=== PATIENT | male | born 1955 | race Caucasian/White ===

== ENCOUNTER 2016-12-03 18:50 | Outpatient (CLI) | payer OTHER | END 2016-12-03 18:51 | disposition critical access hospital (66) | LOC: EMS 18:50 | PROVIDERS: ATTEND Surgery | DX: R56.9 Unspecified convulsions (principal) | CPT/HCPCS: A0425; A0429 ==

== ENCOUNTER 2016-12-03 19:05 | Emergency (ER) | payer OTHER ==
--- NOTE | 2016-12-03 19:12 | ED Physician Documentation ---
PD HPI SYNCOPE - Stated complaint Stated Complaint: SZ - History obtained from History obtained from: Patient, EMS - History of Present Illness Witnessed: Witnessed (Reportedly passed out after saying he didn't feel well at the dinner table, there was some shaking but no fall and no reported postictal episode. Had a similar episode last year and then after that was diagnosed with Parkinson's. The patient is a poor historian, seems to have some memory difficulties and doesn't remember the event.) Review of Systems Unable to obtain: Confused PD PAST MEDICAL HISTORY - Present Medications Home Medications: Ambulatory Orders Medication Instructions Recorded Confirmed Atenolol 25 mg PO DAILY 09/09/13 12/03/16 Lisinopril [Zestril] 20 mg PO DAILY 09/09/13 12/03/16 Atorvastatin [Lipitor] 20 mg PO DAILY 08/01/15 12/03/16 Esomeprazole [NexIUM] 40 mg PO DAILY 08/01/15 12/03/16 Carbidopa/Levodopa [Carbidopa-Levo 0 mg TID 12/03/16 12/03/16 ER 25-100 Tab] Ferrous Sulfate 324 mg DAILY 12/03/16 12/03/16 - Allergies Allergies/Adverse Reactions: Allergies Allergy/AdvReac Type Severity Reaction Status Date / Time codeine AdvReac Intermediate gi problems Verified 08/01/15 10:16 PD ED PE NORMAL - Vitals Vital signs reviewed: Yes - General General: No acute distress, Other (A/O x2) - HEENT HEENT: PERRL, EOMI - Neck Neck: Supple, no meningeal sign, No bony TTP - Cardiac Cardiac: RRR, No murmur - Respiratory Respiratory: No respiratory distress, Clear bilaterally - Abdomen Abdomen: Soft, Other (Focal RUQ TTP) - Back Back: No CVA TTP, No spinal TTP - Derm Derm: Normal color, Warm and dry - Extremities Extremities: No edema, No calf tenderness / cord - 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, No motor deficit, No sensory deficit - Psych Psych: Normal mood, Normal affect Results - Vitals Vitals: Vital Signs - 24 hr 12/03/16 12/03/16 12/03/16 19:06 19:35 20:22 Temperature 36 C L Heart Rate 82 86 81 Respiratory 18 18 18 Rate Blood Pressure 144/74 H 141/85 H 145/85 H O2 Saturation 100 100 99 06/11/17 21:45 Temperature Heart Rate 87 Respiratory 18 Rate Blood Pressure 134/71 H O2 Saturation 97 Oxygen O2 Source Room air - EKG (time done) 1917 Rate: Rate (enter#) (77) Rhythm: NSR [place]: Normal Intervals: Normal MA QRS: Normal Ischemia: Normal ST segments Computer interpretation: Agree with computer - Labs Labs: Laboratory Tests 12/03/16 12/03/16 12/03/16 19:20 19:20 19:20 WBC 6.1 RBC 4.34 L Hgb 12.4 L Hct 37.6 L MCV 86.4 MCH 28.6 MCHC 33.1 RDW 14.4 Plt Count 259 MPV 7.9 Neut # 3.4 Lymph # 2.1 [place] # 0.5 Eos # 0.1 Baso # 0.0 Absolute Nucleated RBC 0.00 Nucleated RBCs 0.1 Sodium 139 Potassium 3.8 Chloride 105 Carbon Dioxide 26 Anion Gap 8.0 BUN 21 H Creatinine 0.8 Estimated GFR (MDRD) 99 Glucose 178 H Calcium 9.1 Total Bilirubin 0.3 AST 19 ALT 28 Alkaline Phosphatase 62 Troponin I < 0.04 Total Protein 7.2 Albumin 4.5 Globulin 2.7 Albumin/Globulin Ratio 1.7 Lipase 24 Ethyl Alcohol < 5.0 - Rads (name of study) CT Head Radiology: EMP read contemporaneously (NAD) RUQ sono Radiology: EMP read contemporaneously (fatty liver, small R kidney) PD MEDICAL DECISION MAKING - ED course ED course: The arrived, her description of the episode was that he said he didn't feel well, and then started shaking, but was still conscious during that time he never completely lost consciousness, but his mental status was not and he is not normal. He is tender in the right upper quadrant and I wonder if this episode was the only way he could demonstrate pain. He says he is in no pain but does admit to significant pain when I palpate the right upper quadrant. Given that he never completely lost consciousness with bilateral shaking this is not consistent with syncope or seizure. He pretty much came back to normal here, his workup was negative. He ate and did well and ambulated at his baseline per the . She felt comfortable taking him home. Departure - Departure Disposition: 01 Home, Self Care Clinical Impression: Episode of shaking, Parkinson disease Condition: Good Record reviewed to determine appropriate education?: Yes Instructions: ED Confusion Comments: Call your doctor to arrange a follow up appointment. Make the next available appointment. In the interim return anytime if worse or if new symptoms develop. Your blood pressure was elevated today on check in to the emergency department. This does not mean that you have hypertension, it is a common phenomenon to check into the emergency department and have elevated blood pressure. I recommend that you see your primary care physician within the week to have it rechecked when you're feeling better. Discharge Date/Time: 12/03/16 22:03
[2016-12-03 19:31] LABS: BASOPHILS % (AUTO) 0.7 %; EOSINOPHILS # (AUTO) 0.1 10^3/uL (0.0-0.7); EOSINOPHILS % (AUTO) 2.2 %; HCT - HEMATOCRIT 37.6 % (42.0-52.0); HGB - HEMOGLOBIN 12.4 g/dL (14.0-18.0); LYMPHOCYTES # (AUTO) 2.1 10^3/uL (1.5-3.5); MEAN CORPUSCULAR HEMOGLOBIN 28.6 pg (27.0-31.0); MEAN CORPUSCULAR HGB CONC 33.1 g/dL (32.0-36.0); MEAN CORPUSCULAR VOLUME 86.4 fL (80.0-94.0); MEAN PLATELET VOLUME 7.9 fL (7.4-11.4); MONOCYTES # (AUTO) 0.5 10^3/uL (0.0-1.0); MONOCYTES % (AUTO) 7.9 %; NEUTROPHILS # (AUTO) 3.4 10^3/uL (1.5-6.6); NEUTROPHILS % (AUTO) 55.2 %; NUCLEATED RED BLOOD CELLS AUTO 0.1 /100WBC; RED BLOOD COUNT 4.34 10^6/uL (4.70-6.10); RED CELL DISTRIBUTION WIDTH 14.4 % (12.0-15.0); UNCORRECTED WHITE BLOOD COUNT 6.1 x10^3/uL; WHITE BLOOD COUNT 6.1 x10^3/uL (4.8-10.8)
[2016-12-03 19:41] LABS: ALBUMIN/GLOBULIN RATIO 1.7 (1.0-2.2); BILIRUBIN,TOTAL 0.3 mg/dL (0.2-1.0); BUN - BLOOD UREA NITROGEN 21 mg/dL (6-20); CALCIUM 9.1 mg/dL (8.5-10.3); CARBON DIOXIDE - CO2 26 mmol/L (21-32); CHLORIDE 105 mmol/L (101-111); CREATININE 0.8 mg/dL (0.6-1.2); GFR - MDRD 99 (>89); GLUCOSE 178 mg/dL (70-100); LIPASE 24 U/L (22-51); POTASSIUM 3.8 mmol/L (3.5-5.0); SODIUM 139 mmol/L (135-145); TOTAL PROTEIN 7.2 g/dL (6.7-8.2)
--- NOTE | 2016-12-03 20:24 | CT Preliminary Report ---
Exam: CT Head W/O IMPRESSION: No acute intracranial abnormality. [facility] SITE ID: [id number]
--- NOTE | 2016-12-03 20:26 | CT Report ---
EXAM: CT HEAD EXAM DATE: 12/03/2016 07:52 PM. CLINICAL HISTORY: Poss seizure. COMPARISON: None. TECHNIQUE: Multiaxial CT images were obtained from the foramen magnum to the vertex. IV contrast: Non e. Reformats: Coronal. In accordance with CT protocol optimization, one or more of the following dose reduction techniques w ere utilized for this exam: automated exposure control, adjustment of mA and/or KV based on patient s ize, or use of iterative reconstructive technique. FINDINGS: Parenchyma: No intraparenchymal hemorrhage. No evidence of mass, midline shift, or CT findings of inf arction. Slaughter-white differentiation is distinct. Extraaxial Spaces: Normal for age. No subdural or epidural collections identified. Ventricles: Normal in size and position. Sinuses: Imaged paranasal sinuses, orbits, and mastoids show no significant abnormality. Bones: No evidence of fracture or calvarial defect. Other: None. IMPRESSION: No acute intracranial abnormality. [facility] Referring Provider Line: [phone] SITE ID: [id number]
--- NOTE | 2016-12-03 20:49 | Ultrasound Preliminary Report ---
Exam: US Abdomen Limited IMPRESSION: 1. No cholelithiasis or cholecystitis. 2. Mild fatty liver. 3. Right kidney measures mildly small. 4. Limited as above. No acute findings are seen. [facility] SITE ID: [id number]
--- NOTE | 2016-12-03 20:52 | Ultrasound Report ---
EXAM: ABDOMEN ULTRASOUND LIMITED, RUQ EXAM DATE: 12/03/2016 08:31 PM. CLINICAL HISTORY: Right upper quadrant tender to palpation COMPARISON: None. TECHNIQUE: Real-time scanning was performed with static images obtained. FINDINGS: Liver: Mild fatty liver. Suboptimal visualization. Patient unable to hold breath. Liver cyst adjacent to the gallbladder measuring 1.3 x 1.1 x 1.4 cm. Liver length 16.1 cm. Main portal vein flow: Hepato petal. Gallbladder: Normal. No stones, wall thickening, or sonographic Cordero's sign. Gallbladder wall measu res 2.5 mm Biliary System: Common duct measures 5 mm. No intrahepatic or extrahepatic ductal dilatation. Other: Right kidney measures mildly smaller at 8.8 cm. No hydronephrosis. The pancreas is not seen due to overlying bowel gas. [employer] reports that this was a technically difficult exam due to patient constant motion and bod y habitus. Patient has Parkinson's disease. IMPRESSION: 1. No cholelithiasis or cholecystitis. 2. Mild fatty liver. 3. Right kidney measures mildly small. 4. Limited as above. No acute findings are seen. [facility] Referring Provider Line: [phone] SITE ID: [id number]
[2016-12-03 21:46] VITALS: BP 134/71
== END 2016-12-03 22:03 | disposition home or self-care (01) ==
LOC: EDUNIT# → ED 19:05
DX: G20 Parkinson's disease (principal); R03.0 Elevated blood-pressure reading, without diagnosis of hypertension
CPT/HCPCS: 36415; 70450; 76705; 80053; 80320; 83690; 84484; 85025; 93005; 93010; 99285

== ENCOUNTER 2019-06-18 11:22 | Outpatient (CLI) | payer OTHER | END 2019-06-18 11:23 | disposition critical access hospital (66) | LOC: EMS 11:22 | PROVIDERS: ATTEND Surgery | DX: R56.9 Unspecified convulsions (principal) | CPT/HCPCS: A0425; A0429 ==

== ENCOUNTER 2019-06-18 11:37 | Emergency (ER) | payer OTHER ==
--- NOTE | 2019-06-18 12:19 | ED Physician Documentation ---
PD HPI SEIZURE - Stated complaint Stated Complaint: POSS SZ - Chief complaint Chief Complaint: Neuro - History obtained from History obtained from: Patient, Family - History of Present Illness Timing - onset: Today (63-year-old gentleman with history of Parkinson's, on carbidopa levodopa and and has been on reduced evening for a few months now. He had a possible seizure back in [address] Today he had 3 [id number]-[id number] episodes of shaking, lasting about 10 seconds each with a 10-second pause in between with some confusion afterward. No unconsciousness though so it is a question whether was a true seizure before that he had a few marijuana edibles. He is now back to his baseline.) Review of Systems Unable to obtain: Confused PD PAST MEDICAL HISTORY - Past Medical History Past Medical History: Yes Cardiovascular: Hypertension Neuro: Parkinson's, Seizure disorder GI: GERD - Past Surgical History Past Surgical History: No - Present Medications Home Medications: Ambulatory Orders Medication Instructions Recorded Confirmed atenoloL [Atenolol] 25 mg PO DAILY 09/09/13 12/03/16 lisinopriL [Zestril] 20 mg PO DAILY 09/09/13 12/03/16 Atorvastatin [Lipitor] 20 mg PO DAILY 08/01/15 12/03/16 Esomeprazole [NexIUM] 40 mg PO DAILY 08/01/15 12/03/16 Carbidopa/Levodopa [Carbidopa-Levo 0 mg TID 12/03/16 12/03/16 ER 25-100 Tab] Ferrous Sulfate 324 mg DAILY 12/03/16 12/03/16 - Allergies Allergies/Adverse Reactions: Allergies Allergy/AdvReac Type Severity Reaction Status Date / Time codeine AdvReac Intermediate gi problems Verified 08/01/15 10:16 - Social History Does the pt smoke?: No Smoking Status: Never smoker Does the pt drink ETOH?: No Does the pt have substance abuse?: No - Immunizations Immunizations are current?: Yes Immunizations: TDAP current <10years PD ED PE NORMAL - Vitals Vital signs reviewed: Yes - General General: No acute distress, Other (A/Ox2; Does not remember that it is his 's birthday today). No: Alert and oriented X 3 - HEENT HEENT: PERRL, EOMI - Neck Neck: Supple, no meningeal sign, No bony TTP - Cardiac Cardiac: RRR, No murmur - Respiratory Respiratory: No respiratory distress, Clear bilaterally - Abdomen Abdomen: Normal bowel sounds, Soft, Non tender - Derm Derm: Normal color, Warm and dry - Extremities Extremities: No edema, No calf tenderness / cord - Neuro Neuro: No motor deficit, No sensory deficit, Normal speech Eye Opening: Spontaneous Motor: Obeys Commands Verbal: Confused GCS Score: 14 Results - Vitals Vitals: Vital Signs - 24 hr 06/18/19 06/18/19 11:42 13:53 Temperature 36.8 C 37.2 C Heart Rate 84 Respiratory 18 20 Rate Blood Pressure 133/99 H 131/95 H O2 Saturation 100 98 Oxygen O2 Source Room air - Labs Labs: Laboratory Tests 06/18/19 06/18/19 06/18/19 12:58 12:58 12:58 WBC 8.8 RBC 4.50 L Hgb 12.5 L Hct 40.3 L MCV 89.6 MCH 27.8 MCHC 31.0 L RDW 12.6 Plt Count 237 MPV 10.1 Neut # (Auto) 6.9 H Lymph # (Auto) 1.2 L [place] # (Auto) 0.5 Eos # (Auto) 0.1 Baso # (Auto) 0.0 Absolute Nucleated RBC 0.00 Nucleated RBC % 0.0 Manual Slide Review Indicated WBC Morphology NORMAL APPEARANCE Platelet Estimate NORMAL (130-450,000) Platelet Morphology NORMAL APPEARANCE RBC Morph Micro Appear NORMAL APPEARANCE Sodium 138 Potassium 3.9 Chloride 104 Carbon Dioxide 24 Anion Gap 10.0 BUN 24 H Creatinine 0.8 Estimated GFR (MDRD) 98 Glucose 106 H Calcium 9.1 Total Bilirubin 0.5 AST 20 ALT 20 Alkaline Phosphatase 57 Total Protein 7.4 Albumin 4.2 Globulin 3.2 Albumin/Globulin Ratio 1.3 Lipase 34 Prolactin 7.71 PD MEDICAL DECISION MAKING - ED course ED course: 63-year-old gentleman with history of Parkinson's, he is been on realistic mean for a few months today, possible seizure activity today although not too convincing based on the description. Work-up here was negative, prolactin level still pending on discharge and discussed to have his neurologist check on that level because it may help her decide whether or not to start antiepileptics. Departure - Departure Disposition: 01 Home, Self Care Clinical Impression: Episode of shaking, Parkinson disease Record reviewed to determine appropriate education?: Yes Instructions: ED Seizure New Onset Unk Cause Comments: As discussed, I am not convinced that this episode represented a seizure. Follow-up with your neurologist and discuss with your neurologist if you should have further work-up for seizures or if you should stop the Rivastigmine. Let her know that we are performing a prolactin level, these results are not done on discharge but Dr. Javier can request them from our lab. Discharge Date/Time: 06/18/19 13:50
[2019-06-18 13:05] LABS: BASOPHILS % (AUTO) 0.3 %; EOSINOPHILS # (AUTO) 0.1 10^3/uL (0.0-0.7); EOSINOPHILS % (AUTO) 0.8 %; HGB - HEMOGLOBIN 12.5 g/dL (14.0-18.0); LYMPHOCYTES # (AUTO) 1.2 10^3/uL (1.5-3.5); LYMPHOCYTES % (AUTO) 13.8 %; MEAN CORPUSCULAR HEMOGLOBIN 27.8 pg (27.0-31.0); MEAN CORPUSCULAR VOLUME 89.6 fL (80.0-94.0); MEAN PLATELET VOLUME 10.1 fL (7.4-11.4); MONOCYTES # (AUTO) 0.5 10^3/uL (0.0-1.0); MONOCYTES % (AUTO) 5.8 %; NEUTROPHILS # (AUTO) 6.9 10^3/uL (1.5-6.6); PLT - PLATELET COUNT 237 10^3/uL (130-450); RED CELL DISTRIBUTION WIDTH 12.6 % (12.0-15.0); WHITE BLOOD COUNT 8.8 x10^3/uL (4.8-10.8)
--- NOTE | 2019-06-18 13:08 | CT Report ---
Reason: seizure Procedure Date: 06/18/2019 Accession Number: [id number] / [id number] Procedure: CT - HEAD WO CPT Code: Final Report FULL RESULT: EXAM: CT HEAD EXAM DATE: 06/18/2019 12:39 PM. CLINICAL HISTORY: Seizure. COMPARISON: HEAD W/O 12/03/2016 7:45 PM. TECHNIQUE: Multiaxial CT images were obtained from the foramen magnum to the vertex. Reformats: Sagittal and coronal. IV contrast: None. In accordance with CT protocol optimization, one or more of the following dose reduction techniques were utilized for this exam: automated exposure control, adjustment of mA and/or KV based on patient size, or use of iterative reconstructive technique. FINDINGS: Parenchyma: No intraparenchymal hemorrhage. No evidence of mass, midline shift, or CT findings of acute infarction. Slaughter-white differentiation is distinct. Diffuse chronic microangiopathic white matter changes are evident. Extraaxial Spaces: Normal for age. No subdural or epidural collections identified. Ventricles: The ventricles and cortical sulci are enlarged, consistent with age-related tissue loss. Sinuses and orbits: Imaged paranasal sinuses, orbits, and mastoids show no significant abnormality. Bones: No evidence of fracture or calvarial defect. Other: None. IMPRESSION: Generalized age-related cortical atrophic changes without evidence of acute intracranial abnormality. [facility]
[2019-06-18 13:19] LABS: ALBUMIN 4.2 g/dL (3.2-5.5); ALBUMIN/GLOBULIN RATIO 1.3 (1.0-2.2); BILIRUBIN,TOTAL 0.5 mg/dL (0.2-1.0); CALCIUM 9.1 mg/dL (8.5-10.3); CREATININE 0.8 mg/dL (0.6-1.2); TOTAL PROTEIN 7.4 g/dL (6.7-8.2)
[2019-06-18 13:54] VITALS: BP 131/95
[2019-06-18 14:20] LABS: RBC MORPHOLOGY (MULTIPLE) NORMAL APPEARANCE (NORMAL)
[2019-06-18 14:21] LABS: PLATELET ESTIMATE, MANUAL NORMAL (130-450,000) (NORMAL); PLATELET MORPHOLOGY NORMAL APPEARANCE (NORMAL)
== END 2019-06-18 13:50 | disposition home or self-care (01) ==
LOC: EDUNIT# → ED 11:37
DX: G20 Parkinson's disease (principal); R41.0 Disorientation, unspecified; G40.909 Epilepsy, unspecified, not intractable, without status epilepticus; I10 Essential (primary) hypertension
CPT/HCPCS: 36415; 70450; 80053; 83690; 84146; 85025; 93005; 99281; 99284

== ENCOUNTER 2020-12-21 06:46 | Outpatient (CLI) | payer OTHER | END 2020-12-21 06:47 | disposition EMS.NT | LOC: EMS 06:46 | DX: Z04.3 Encounter for examination and observation following other accident (principal) ==

== ENCOUNTER 2023-02-25 10:21 | Outpatient (CLI) | payer MEDICARE, OTHER | END 2023-02-25 23:59 | disposition critical access hospital (66) | LOC: EMS 10:21 | DX: R41.0 Disorientation, unspecified (principal); R53.83 Other fatigue | CPT/HCPCS: A0425; A0429 ==